=== PATIENT | female | born 1945 | race Caucasian/White ===

== ENCOUNTER 2018-06-28 14:35 | Outpatient (CLI) | payer MEDICARE, BC ==
--- NOTE | 2018-06-28 16:53 | MRI ---
MR ABDOMEN WITH AND WITHOUT CONTRAST 06/28/18 HISTORY: R93.3 - abnormal CT. M28.9 - kidney lesion. COMPARISON: CT abdomen from 2017. FINDINGS: There are two nonenhancing cysts inferior pole of the left kidney which are adjacent to each other, o ne measuring 1.5 cm, likely the lesion in question from the prior CT examination and the other, somew hat smaller and granulated measuring 8 mm. Small interpolar 4 mm cyst is present. No abnormal enhanci ng mass. No intraperitoneal adenopathy. There is insertion of the cystic duct onto the common bile duct with t he cystic duct measuring up to 6 mm and the common bile duct measuring up to 7 mm. Low grade intrahep atic biliary dilatation. No abnormal enhancing hepatic mass. The pancreas is unremarkable. Adrenal glands are unremarkable. Aortic contour is nonaneurysmal. Mild degenerative changes of the thoracic and lumbar spine, worse in lower lumbar spine as expected for age. The spleen is unremarkable. Only seen on the large field of view single short image is a T2 hyperintense foci within what appear to be the junctional zone of the uterus and may reflect adenomyosis. IMPRESSION: 1. Left sided renal cyst, unchanged in size of the left renal cyst from the CT examination. 2. What appears to be possible adenomyosis of the junctional zone of the uterus, although not we ll defined on this examination. If clinically warranted, a pelvic MRI with and without contrast can be performed. 3. Low insertion of cystic duct near the pancreatic head with mild prominence of the intrahepati c and extrahepatic biliary system. No choledocholithiasis. 4. No acute inflammatory process within the abdomen. POS: [facility]
== END 2018-06-28 14:36 | disposition home or self-care (01) ==
LOC: TBSIIMAG 14:35
PROVIDERS: ATTEND Internal Medicine Gastroenterology
DX: N28.9 Disorder of kidney and ureter, unspecified (principal); R93.3 Abnormal findings on diagnostic imaging of other parts of digestive tract; N28.1 Cyst of kidney, acquired; K86.89 Other specified diseases of pancreas
CPT/HCPCS: 74183

== ENCOUNTER 2022-12-12 16:08 | Emergency (ER) | payer MEDICARE, BC ==
[2022-12-12] MEDS ORDERED: HYDROcodone/Acetaminophen 5/325 mg Tablet ONE (16:48)
[2022-12-12] MEDS ORDERED: Lidocaine 4% Patch TD SCH (17:00)
[2022-12-12] MEDS ORDERED: Ketorolac Tromethamine 30 MG/ML VIAL ONE (17:02)
[2022-12-12] MEDS ORDERED: predniSONE 20 MG TAB ONE (18:16)
[2022-12-13] MEDS ORDERED: Transdermal Patch Removal TOP SCH (05:00)
== END 2022-12-12 18:52 | disposition home or self-care (01) ==
LOC: ERS 16:08
DX: M54.31 Sciatica, right side (principal); E78.00 Pure hypercholesterolemia, unspecified; I10 Essential (primary) hypertension
CPT/HCPCS: 96372; 99283; J1885; J7512